=== PATIENT | female | born 1970 | race Two or more races ===

== ENCOUNTER 2017-10-13 17:49 | Emergency (ER) | payer OTHER ==
[~2017-10-13] VITALS: Ht 157.5 cm; Wt 54.4 kg
[2017-10-13 17:53] VITALS: BP 118/75
[2017-10-13] MEDS ORDERED: HYDROcodone/Acetamin 7.5/325 tab ORAL ONE (18:00)
[2017-10-13] MEDS ORDERED: Tetanus/Diptheria/Pertussis Vaccine 0.5ml Syr IM ONE (18:00)
--- NOTE | 2017-10-13 18:58 | Emergency Room Report ---
History of Present Illness General Chief Complaint: Burn/Smoke Inhalation Present Illness HPI 47-year-old female presents to the emergency department with 8 out of 10 in severity pain secondary to burn on the anterior thigh 2 days. Patient reports that she spilled hot coffee on her leg and sustained burn now way. Patient denies mesa elsewhere on her body. Patient reports initial blistering which has opened and drained since. Patient reports some increase in redness around the border of her burning which was not there previously. Patient denies fevers , chills, venous or lightheadedness. Patient states that she has been well- hydrated. Does not know when her last tetanus vaccination was. She denies circumferential burn of the leg. No other associated signs or symptoms pain is exacerbated upon palpation. Allergies: Coded Allergies: No Known Allergies (Unverified , 10/13/17) Patient History Past Medical History: see triage record Past Surgical History: none Pertinent Family History: none Now: No Reviewed Nursing Documentation: PMH: Agreed; PSxH: Agreed Nursing Documentation-PMH Hx Seizures: Yes Review of Systems All Other Systems: negative except mentioned in HPI Physical Exam Vital Signs Date Time Temp Pulse Resp B/P (MAP) Pulse Ox O2 Delivery O2 Flow Rate FiO2 10/13/17 17:53 97.6 64 20 118/75 99 Room Air 97.5 Sp02 EP Interpretation: reviewed, normal General Appearance: no apparent distress, alert, GCS 15, non-toxic Head: normocephalic, atraumatic ENT: hearing grossly normal, normal voice Neck: full range of motion Respiratory: lungs clear, normal breath sounds, speaking full sentences Cardiovascular #1: regular rate, rhythm Musculoskeletal: back normal, gait/station normal, normal range of motion Neurologic: alert, oriented x3, responsive, motor strength/tone normal, sensory intact, speech normal, grossly normal Psychiatric: judgement/insight normal Skin: normal color, warm/dry, well hydrated, mesa - Second-degree burn covering for now percent of BSA located on left anterior thigh non- circumferential. open bullae noted Lymphatic: no adenopathy Medical Decision Making PA Attestation Diagnostic Impression: Primary Impression: Second degree burn ER Course 47-year-old female presents to the emergency department with 8 out of 10 in severity pain secondary to burn on the anterior thigh 2 days. Patient reports that she spilled hot coffee on her leg and sustained burn now way. Patient denies mesa elsewhere on her body. Patient reports initial blistering which has opened and drained since. Patient reports some increase in redness around the border of her burning which was not there previously. Patient denies fevers , chills, venous or lightheadedness. Patient states that she has been well- hydrated. Does not know when her last tetanus vaccination was. She denies circumferential burn of the leg. No other associated signs or symptoms pain is exacerbated upon palpation. Ddx considered but are not limited to cellulitis, burn, Dehydration, fracture, d /L, gout, fungal infection just to name few. Vital signs: are WNL, pt. is afebrile H&PE are most consistent with : Second-degree burn covering for now percent of BSA located on left anterior thigh non-circumferential. ORDERS: none required at this time, the diagnosis is clinical ED INTERVENTIONS: -Tdap vaccination administered -Wound cleaning -Application of Silvadene Patient declined oral pain medication. Discussed with patient and proper burn care as well as follow-up and to drink plenty of water to stay hydrated. DISCHARGE: At this time pt. is stable for d/c to home. Will provide printed patient care instructions, and any necessary prescriptions. Care plan and follow up instructions have been discussed with the patient prior to discharge. Last Vital Signs Date Time Temp Pulse Resp B/P (MAP) Pulse Ox O2 Delivery O2 Flow Rate FiO2 10/13/17 17:53 97.6 64 20 118/75 99 Room Air 97.5 Disposition: HOME, SELF-CARE Condition: Stable Scripts Hydrocodone Bit/Acetaminophen 5-325* (NORCO 5-325*) 1 Each Tablet 1 TAB ORAL Q6H PRN for For Pain, #6 TAB 0 Refills Prov: Yudelka Love P.A. 10/13/17 Silver Sulfadiazine (SILVADENE) 20 Gm Cream..g. 1 APPLIC TP BID, #20 GM Prov: Yudelka Love P.A. 10/13/17 Cephalexin* (KEFLEX*) 500 Mg Capsule 500 MG ORAL EVERY 12 HOURS for 7 Days, #14 CAP 0 Refills Prov: Yudelka Love P.A. 10/13/17 Patient Instructions: Second-Degree Burn Additional Instructions: Take medications as directed. Follow up with a Primary Care Provider in 3-5 days, even if your symptoms have resolved. --Please review list of primary care clinics, if you do not already have a primary care provider Return sooner to ED if new symptoms occur, or current symptoms become worse. - Please note that this Emergency Department Report was dictated using [employer] technology software, occasionally this can lead to erroneous entry secondary to interpretation by the dictation equipment. Yudelka Love October 13, 2017 18:58
[2017-10-13] MEDS ORDERED: CEPHALEXIN500 MG ORAL (18:59)
[2017-10-13] MEDS ORDERED: NORCO 5-325 TA1 EACH ORAL (18:59)
[2017-10-13] MEDS ORDERED: SILVADENE20 GM TP (18:59)
[2017-10-13 19:15] VITALS: BP 125/75
[2017-10-13 19:23] VITALS: BP 125/75
== END 2017-10-13 19:23 | disposition home or self-care (01) ==
LOC: EMR 18:40
DX: T24.212A Burn of second degree of left thigh, initial encounter (principal); X10.0XXA Contact with hot drinks, initial encounter; Y92.89 Other specified places as the place of occurrence of the external cause; Z23 Encounter for immunization
CPT/HCPCS: 90471; 90715; 99284